=== PATIENT | female | born 1945 | race Caucasian/White ===

== ENCOUNTER 2018-01-20 17:44 | Inpatient (IN) | payer MEDICARE ==
[~2018-01-20] VITALS: Ht 162.6 cm; Wt 63.1 kg
[~2018-01-20 17:44] MED LIST: FENT-58 TD; FURO-93 PO; HYDR-3237 PO; LEVO100T5 PO; LIDO30CR TP; POLY17PO5 PO; PROM25SU34 RC
[2018-01-20] MEDS ORDERED: SODIUM CHLORIDE 0.9% 1,000ML IVBOLUS ONE (18:30)
[2018-01-20] MEDS ORDERED: SODIUM CHLORIDE FLUSH 10ML SYR IVF ONE (18:30)
[2018-01-20 18:55] LABS: MD YES; MEAN CORPUSCULAR HEMOGLOBIN 24.9 pg (27.0-34.8); MEAN CORPUSCULAR HGB CONC 32.6 g/dL (32.4-35.8); MEAN CORPUSCULAR VOLUME 76.4 fL (80-100); MEAN PLATELET VOLUME 6.1 fL (7.4-10.4); PLATELET COUNT 575 x10^3/uL (130-400); RED BLOOD COUNT 4.37 x10^6/uL (3.82-5.3); RED CELL DISTRIBUTION WIDTH 21.9 % (9.6-15.2)
[2018-01-20 19:24] LABS: BASOS#(MANUAL) 0.12 x10^3/uL (0-0.1); BASOS% (MANUAL) 1 % (0-1); LYMPH#(MANUAL) 2.01 x10^3/uL (1-3.4); LYMPHS% (MANUAL) 17 % (22-44); MONOS#(MANUAL) 0.35 x10^3/uL (0.3-2.7); MONOS% (MANUAL) 3 % (2-9); SEG#(MANUAL) 9.32 x10^3/uL (1.8-6.8); SEGS% (MANUAL) 79 % (42-75)
[2018-01-20 19:26] LABS: HYPOCHROMIA 1+; MICROCYTOSIS 1+
[2018-01-20 19:27] LABS: <PLATELET ESTIMATE> INCREASED; <PLT MORPHOLOGY> NORMAL PLT MORPH; TARGET CELLS 1+
[2018-01-20 19:28] LABS: ALBUMIN 1.5 g/dL (3.4-5.0); ANION GAP 7 mmol/L (5-15); CALCIUM 8.2 mg/dL (8.5-10.1); CHLORIDE 94 mmol/L (98-107)
[2018-01-20 19:31] LABS: ALANINE AMINOTRANSFERASE 14 U/L (12-78); CREATININE 0.73 mg/dL (0.55-1.02)
[2018-01-20 19:36] LABS: ALKALINE PHOSPHATASE 118 U/L (45-117); TOTAL PROTEIN 6.3 g/dL (6.4-8.2); TROPONIN I < 0.015 ng/mL (0.000-0.045)
[2018-01-20] MEDS ORDERED: LORazepam 2 MG/ML, 1ML ONE (19:56)
[2018-01-20] MEDS ORDERED: HALOPERIDOL 5 MG/ML ONE (19:56)
[2018-01-20] MEDS ORDERED: LORazepam 2 MG/ML, 1ML IVPush ONE (20:00)
[2018-01-20] MEDS ORDERED: HALOPERIDOL 5 MG/ML IV ONE (20:00)
[2018-01-20] MEDS ORDERED: OMNIPAQUE 350 MG/ML, 100ML BOTTLE ONE (21:00)
[2018-01-20 22:30] LABS: MICROSCOPIC INDICATED
[2018-01-20] MEDS ORDERED: hydrALAzine 20 MG/ML, 1ML IVPush PRN (22:30)
[2018-01-20 22:43] LABS: CULTURE INDICATED? NO
[2018-01-20 22:54] LABS: AMPHETAMINE SCREEN, URINE Negative (Negative); BARBITURATE SCREEN, URINE Negative (Negative); BENZODIAZEPINE SCREEN, URINE Negative (Negative); CANNABINOID SCREEN, URINE Negative (Negative); COCAINE SCREEN, URINE Negative (Negative); METHADONE SCREEN, URINE Negative (Negative); OPIATE SCREEN, URINE Positive (Negative)
[2018-01-20] MEDS ORDERED: PROMETHAZINE 25 MG SUPP PR PRN (23:00)
[2018-01-20] MEDS: PROMETHAZINE MC SCH (23:30)
[2018-01-21] MEDS: LORazepam 2 MG/ML, 1ML IVPush PRN ×3 (00:57→09:58)
[2018-01-21 01:26] VITALS: BP 123/60
[2018-01-21] MEDS: SODIUM CHLORIDE 0.9% 1,000 ML IV SCH ×2 (01:47→18:21)
[2018-01-21] MEDS: HALOPERIDOL 5 MG/ML IM PRN ×2 (01:54→14:54)
[2018-01-21 05:24] LABS: MEAN CORPUSCULAR HEMOGLOBIN 24.7 pg (27.0-34.8); MEAN CORPUSCULAR HGB CONC 32.5 g/dL (32.4-35.8); MEAN PLATELET VOLUME 6.3 fL (7.4-10.4); PLATELET COUNT 475 x10^3/uL (130-400); RED BLOOD COUNT 3.69 x10^6/uL (3.82-5.3); RED CELL DISTRIBUTION WIDTH 22.1 % (9.6-15.2)
[2018-01-21 05:26] LABS: ALBUMIN 1.4 g/dL (3.4-5.0); ANION GAP 7 mmol/L (5-15); CALCIUM 7.4 mg/dL (8.5-10.1); CHLORIDE 97 mmol/L (98-107)
[2018-01-21 05:31] LABS: ALANINE AMINOTRANSFERASE 13 U/L (12-78); ALKALINE PHOSPHATASE 100 U/L (45-117); BILIRUBIN,TOTAL 1.2 mg/dL (0.2-1.0); CREATININE 0.68 mg/dL (0.55-1.02); TOTAL PROTEIN 5.6 g/dL (6.4-8.2)
[2018-01-21 05:54] LABS: MD YES
[2018-01-21 05:56] LABS: LYMPH#(MANUAL) 2.22 x10^3/uL (1-3.4); LYMPHS% (MANUAL) 20 % (22-44); MONOS#(MANUAL) 0.22 x10^3/uL (0.3-2.7); MONOS% (MANUAL) 2 % (2-9); SEG#(MANUAL) 8.66 x10^3/uL (1.8-6.8); SEGS% (MANUAL) 78 % (42-75)
[2018-01-21 05:57] LABS: ANISOCYTOSIS 1+; MICROCYTOSIS 1+
[2018-01-21 05:58] LABS: HYPOCHROMIA 1+
[2018-01-21 06:00] LABS: <PLATELET ESTIMATE> INCREASED; TARGET CELLS 1+
[2018-01-21 06:01] LABS: <PLT MORPHOLOGY> NORMAL PLT MORPH
[2018-01-21] MEDS: PROMETHAZINE MC SCH (07:26)
[2018-01-21] MEDS ORDERED: MORPHINE SULFATE 4 MG/ML, 1ML ONE (07:30)
[2018-01-21] MEDS ORDERED: PROMETHAZINE 25 MG SUPP PR PRN (07:30)
[2018-01-21] MEDS: morphine SULFATE 10 MG/ML, 1ML IVPush PRN ×4 (07:33→22:17)
[2018-01-21 09:06] VITALS: BP 118/58
[2018-01-21] MEDS: LEVOTHYROXINE 100 MCG TABLET PO SCH (09:50)
[2018-01-21] MEDS: HEPARIN 5,000 UNITS/ML, 1ML SQ SCH ×2 (09:50→22:23)
[2018-01-21] MEDS: FUROSEMIDE 20 MG/2 ML IV SCH (09:58)
[2018-01-21] MEDS ORDERED: LORazepam 2 MG/ML, 1ML IVPush PRN (14:30)
[2018-01-21 19:39] VITALS: BP 124/64
[2018-01-22 01:00] VITALS: BP 109/58
[2018-01-22] MEDS: morphine SULFATE 10 MG/ML, 1ML IVPush PRN ×3 (03:58→13:49)
[2018-01-22] MEDS: LEVOTHYROXINE 100 MCG TABLET PO SCH (08:10)
[2018-01-22 08:22] VITALS: BP 117/60
[2018-01-22] MEDS: HEPARIN 5,000 UNITS/ML, 1ML SQ SCH (09:18)
[2018-01-22] MEDS: FUROSEMIDE 20 MG/2 ML IV SCH (09:35)
== END 2018-01-22 16:03 | disposition hospice, home (50) | DRG 374 ==
LOC: ED 18:50 → EDIP 21:41 → 3NW 23:10
PROVIDERS: ADMIT Hospitalist; ATTEND Hospitalist
PROC: 0T9B70Z Drainage of Bladder with Drainage Device, Via Natural or Artificial Opening (ICD-10-PCS; principal; 2018-01-20)
DX: C18.9 Malignant neoplasm of colon, unspecified (principal); G93.41 Metabolic encephalopathy; C77.9 Secondary and unspecified malignant neoplasm of lymph node, unspecified; E87.1 Hypo-osmolality and hyponatremia; D63.0 Anemia in neoplastic disease; E03.9 Hypothyroidism, unspecified; Z51.5 Encounter for palliative care; Z66 Do not resuscitate; Z85.038 Personal history of other malignant neoplasm of large intestine; Z87.891 Personal history of nicotine dependence; Z90.49 Acquired absence of other specified parts of digestive tract; Z90.710 Acquired absence of both cervix and uterus; Z92.21 Personal history of antineoplastic chemotherapy; Z93.3 Colostomy status; Z88.8 Allergy status to other drugs, medicaments and biological substances
CPT/HCPCS: 36415; 70450; 71045; 74177; 80053; 80307; 81001; 82140; 83605; 83735; 83880; 84100; 84145; 84443; 84484; 85025; 87040; 93005; 96361; 96374; 96375; 99291; Q9967; J1630; J1940; J2060; J2270; J7030